=== PATIENT | male | born 1980 ===

== ENCOUNTER 2023-12-09 19:06 | Observation (INO) | payer MEDICAID ==
[~2023-12-09] VITALS: Ht 175.3 cm; Wt 81.7 kg
[2023-12-09] MEDS ORDERED: DiphenhydrAMINE HCl 50 MG/ML 1ML Vial IM ONE (19:40)
[2023-12-09] MEDS ORDERED: Haloperidol Lactate Inj. 5 MG/ML Injection IM ONE (19:40)
[2023-12-09] MEDS ORDERED: LORazepam 2 MG/ML 1ML Injection IM ONE (19:40)
[2023-12-10] MEDS ORDERED: Nicotine Polacrilex 2 MG Gum PO PRN (10:25)
[2023-12-10] MEDS ORDERED: Nicotine 21 MG PATCH TOP SCH (10:25)
[2023-12-10] MEDS ORDERED: Haloperidol Lactate Inj. 5 MG/ML Injection IM ONE (10:25)
[2023-12-10] MEDS ORDERED: OLANZapine ODT 5 MG Tab MM ONE (10:25)
[2023-12-10] MEDS ORDERED: LORazepam 2 MG/ML 1ML Injection IM ONE (10:30)
[2023-12-10 11:44] LABS: BASOPHILS ABSOLUTE AUTO 0.04 K/mm3 (0.00-0.23); BASOPHILS PERCENT AUTO 1 % (0-2); EOSINOPHILS ABSOLUTE AUTO 0.19 K/mm3 (0.00-0.68); EOSINOPHILS PERCENT AUTO 2 % (0-6); Hematocrit 41.9 % (37.0-53.0); Hemoglobin 14.1 g/dL (13.5-17.5); IMMATURE GRAN ABSOLUTE AUTO 0.01 K/mm3 (0.00-0.10); IMMATURE GRAN PERCENT AUTO 0 % (0-1); LYMPHOCYTES ABSOLUTE AUTO 1.53 K/mm3 (0.84-5.20); LYMPHOCYTES PERCENT AUTO 20 % (21-46); MONOCYTES ABSOLUTE AUTO 0.78 K/mm3 (0.16-1.47); MONOCYTES PERCENT AUTO 10 % (4-13); Mean Corpuscular HGB 30.5 pg (26.0-34.0); Mean Corpuscular HGB Conc 33.7 g/dL (31.5-36.5); Mean Corpuscular Volume 91 fL (80-100); NEUTROPHILS ABSOLUTE AUTO 5.24 K/mm3 (1.96-9.15); NEUTROPHILS PERCENT AUTO 67 % (41-73); Platelet Count 222 K/mm3 (150-400); RDW Coefficient Variation 13.5 % (11.7-14.2); RDW Standard Deviation 45.4 fL (35.1-46.3); Red Blood Cell Count 4.63 M/mm3 (4.30-5.90); White Blood Cell Count 7.79 K/mm3 (4.00-11.30)
[2023-12-10] MEDS ORDERED: OLANZapine 10 MG Vial IM PRN (11:55)
[2023-12-10 12:05] LABS: Acetaminophen, Random <2.0 ug/mL (10.0-30.0); Alanine Aminotransfer (ALT/SGP 24 U/L (12-78); Albumin, Blood 3.5 g/dL (3.4-5.0); Alk Phos 96 U/L (50-136); Anion Gap 7 mmol/L (3-11); Aspartate Aminotrans (AST/SGOT 26 U/L (12-37); Bilirubin, Total 1.5 mg/dL (0.1-1.0); Blood Urea Nitrogen 14 mg/dL (8-24); Bun/Creatinine Ratio 16.8 (12.0-20.0); CO2, Blood 30 mmol/L (21-32); Calcium, Blood 8.7 mg/dL (8.5-10.1); Chloride, Blood 107 mmol/L (98-108); Creatinine, Blood 0.84 mg/dL (0.60-1.20); Ethanol (Alcohol), Blood, Med <3 mg/dL; Globulin, Blood 3.5 g/dL (2.2-4.0); Glomerular Filtration Rate 112 (60-); Glucose, Blood 97 mg/dL (70-99); Potassium, Blood 3.8 mmol/L (3.5-5.5); Salicylate <1.7 mg/dL (2.8-20.0); Sodium, Blood 140 mmol/L (136-145)
[2023-12-10 18:25] LABS: Source, Urine Voided
[2023-12-10 18:32] LABS: Appearance, Urine Clear (Clear); Bilirubin, Urine Neg (Neg); Blood, Urine Neg (Neg); Color, Urine Yellow (P-Yellow); Glucose Qualitative, Urine Neg (Neg); Ketones, Urine Neg (Neg); Leukocyte Esterase, Urine Neg (Neg); Nitrite, Urine Neg (Neg); Protein, Urine Neg (Neg); Specific Gravity, Urine 1.015 (1.003-1.022); Urobilinogen, Urine NORM (Normal); pH, Urine 6.5 (5.0-8.0)
[2023-12-10 18:50] LABS: U Amphetamine Screen Not Detected; U Barbituate Screen Not Detected; U Benzodiazapine Screen DETECTED; U Buprenorphine Screen Not Detected; U Cannabinoids Screen DETECTED; U Cocaine Screen Not Detected; U Methadone Screen Not Detected; U Methamphetamine Screen Not Detected; U Opiates Screen Not Detected; U Oxycodone Screen Not Detected; U Phencyclidine Screen Not Detected
[2023-12-10] MEDS ORDERED: OLANZapine 10 MG Tab PO SCH (21:00)
== END 2023-12-11 11:00 | disposition other institution (70) ==
LOC: ER 19:06 → EOR 19:07
PROVIDERS: ADMIT Emergency Medicine
DX: F30.2 Manic episode, severe with psychotic symptoms (principal)
CPT/HCPCS: 80053; 81003; 85025; 86592; 93005; 93010; 96372; 99285-25; A9270; G0378; G0480; J1200; J1630; J2060

== ENCOUNTER 2023-12-11 09:29 | Inpatient (IN) | payer OTHER ==
[~2023-12-11] VITALS: Ht 175.3 cm; Wt 100.0 kg
[2023-12-11] MEDS ORDERED: Acetaminophen 325 MG TABLET PO PRN (10:40)
[2023-12-11] MEDS ORDERED: Aluminum Hydroxide 320MG/5ML 473 ML PO PRN (10:40)
[2023-12-11] MEDS ORDERED: DiphenhydrAMINE HCl 50 MG Cap PO PRN ×3 (10:40)
[2023-12-11] MEDS ORDERED: OLANZapine ODT 10 MG Tab MM PRN (10:45)
[2023-12-11] MEDS ORDERED: Haloperidol 5 MG Tab PO PRN ×3 (10:45→10:50)
[2023-12-11] MEDS ORDERED: Melatonin 3 MG Tab PO PRN (10:45)
[2023-12-11] MEDS ORDERED: OLANZapine 10 MG Vial IM PRN ×2 (10:45)
[2023-12-11] MEDS ORDERED: LORazepam 2 MG Tab PO PRN ×3 (10:45→10:50)
[2023-12-11] MEDS ORDERED: Ibuprofen 600 MG Tab PO PRN (10:50)
[2023-12-11 12:24] VITALS: BP 117/77
--- NOTE | 2023-12-11 17:54 | NUR ---
1739: PATIENT AGITATED PACING STATING, "I AM FRUSTRATED AND DO NOT BELONG HERE". PATIENT REQUESTED TO SPEAK TO HIS MOTHER AND HE STARTED RAISING HIS VOICE, MAKING DEROGATORY REMARKS ABOUT HIS MOTHER, AND HE CONTINUE TO RAISE HIS VOICE, HE STARTED DISRUPTING MILIEU, . HIS MASS SCORE WAS 15 AND I GAVE HIM 2MG OF ATIVAN TO DECREASE HIS AGITATION.
[2023-12-11] MEDS ORDERED: OLANZapine 10 MG Tab PO SCH (21:00)
[2023-12-11 21:02] VITALS: BP 115/71
[2023-12-12 07:45] VITALS: BP 134/91
--- NOTE | 2023-12-12 09:07 | NUR ---
PT UP IN HALLS WHE CAME ON TO SHIFT. WILLING TO INTERVIEW. DENIES SI, STATES HE WNTS HS MON TO RSPECR HIM. STAED THAT HE DROVE UP FROM [place] IN HIS MOM'S CAR BUR INTERCHANGE THE CAR IS HIS OR HERS. NIKUNJ'S INSIGHT WHEN TRYING TO FOCUS ON ONE SUBJECT AT A TIME. PACES UP AND DOWN THE [place] AND JON HAVE ABRUPT OUT BURST OF WORDS AT TOMES. "PEANUT BUTTER AND JELLY TIME." LIKES TO TALK ALL THE TIME.
--- NOTE | 2023-12-12 15:12 | NUR ---
At approximately 12:30pm SW observed and listened as pt contacted Dawit Arora due to pt expressing concerns about being in the [facility] and not having the money to retrieve his car from the [facility] with expenses increasing each day. The pt asked requested SW to be present during the call. Pt was advised by the [facility] that as of 12/12/2023 the total fee is $587 and would increase to $65 per day. Once off the phone call, pt demanding SW to advise staff that he wants to leave the facility today in order to retieve his car because he has concerns that he will not be able to afford the [employer] fee in the event it increases past today. SW advised pt that there is a process for discharge. SW advised director and staff of concerns regarding pt concerns and safety (i.e. pt ability to manage anger effectively).
--- NOTE | 2023-12-12 15:20 | NUR ---
At 1411pm SW received a call from a person that alleged they were the mother of pt. SW remained rn occupational for 7 minutes. Alleged mother advised that she wanted to know how the facility could provide financial assistance for pt vehicle to be taken out of [facility]. SW reviewed with mother, that the facility is not able to pay for the eufemia expenses. SW reviewed with mother alternative resources to utilize for the eufemia expenses.
--- NOTE | 2023-12-12 16:35 | NUR ---
PT EHBITING FUSTRATION OVER CAR TOWED AND EXPENSES. STATED TO 2 STAFF MEMBERS THAT HE DOESN'T BELIEVE THAT THE POLICE DON'T HAVE THE RIGHT TO TAKE THINGS INTO THEIR HANDS OVER A FLAT TIRE. STATING HE FEEELS HE DOESN'T BELONG HERE. "SOCIETY HAS TO MUCH POWER OVER THIS" LET HIM KNOW HTAT IF HE IS BECOMING AGITATED OR OVER WHELMED TO LET ME KNOW AND I CAN GIVE HIM SOMETHING TO HELP HIM CALME OWN AND FEEL BETTER. " I DON'T NEED A PILL AN THAT ISN'T THE ANSWER" WILL CONTINUE TO MONITOR.
--- NOTE | 2023-12-12 17:46 | NUR ---
PT has stated multiple times throughout the day "I do not belong here, I dont want to be here, I dont like that the doctor is younger than me and is making me stay three more days." PT stated he was just making music on his tire when the brim pouncer forced him into the ER then into [facility]. He says he hates being here and feels like he is being held against his will. He says he would rather be here voluntary then Invol.
[2023-12-12] MEDS ORDERED: Miconazole Nitrate 28 GM CREAM..G. TOP PRN (17:55)
[2023-12-12 20:23] VITALS: BP 114/71
--- NOTE | 2023-12-12 23:08 | NUR ---
PT HAS SAID SEVERAL TIMES THAT HE IS READY TO LEAVE AND WANTS ME TO TELL THE DR THAT HE WANTS TO LEAVE, BUT WANTS TO CONTINUE HIS "VACATION".
--- NOTE | 2023-12-13 02:38 | NUR ---
PT UP A FEW MINUTES AGO TO GET A DRINK OF WATER. PT IS BACK TO BED AT THIS TIME. WILL CONTINUE TO MONITOR AND PROVIDE CARE.
--- NOTE | 2023-12-13 04:10 | NUR ---
SHIFT SUMMARY PT WAS UP IN [place] AND ON PHONE WITH HIS MOTHER JUST AFTER SHIFT CHANGE AND BECAME AGITATED. CHARGE NURSE AND THIS RN APPROACHED HIM AND HE HUNG UP WITH HIS MOM AND CALMED DOWN. HE WAS EASILY REDIRECTABLE. DENIES ANY SI, HI OR A/V HALLUCINATIONS. MICONAZOLE GIVEN FOR TOES ON R FOOT. HE HAS BEEN SLEEPING QUIETLY SINCE HE WENT TO BED. WILL CONT TO MONITOR T/O REST OF SHIFT AND REPORT CHANGES TO MD.
--- NOTE | 2023-12-13 14:29 | NUR ---
On 12/13/2023 from 1403 to 1419 SW met with pt due to pt expressing concerns of discharge (i.e. Return to [facility]). Pt discussed with SW of biological mother not wanting him in her home. SW reviewed with pt healthy communication and self-advocacy tools to utilize when discussing concerns with support system. Pt expressed towards the end of the conversation, that he would like to return to [facility] and have resources of shelters of different counties in [facility]. SW provided pt of [facility] skilled nursing resources (i.e. [place], [place], [facility] and [facility] and [place]).
--- NOTE | 2023-12-13 18:32 | NUR ---
XI OVER-ALL HAD A GOOD DAY. HE WAS A SLIGHTLY AGITATED THIS MORNING D/T WANTING TO GO HOME. DR. MONDRAGON SPOKE WITH HIM AND DECIDED HE WOULD LIFT HIS HOLD AND DC TOMORROW. PT COOPERATIVE AFTER THAT. SW HAS TALKED TO HIS MOM WHO DOES NOT WANT HIM BACK HOME. PREMPTIVE PLAN IS FOR PT TO DC TOMORROW AND TAKE A [employer] HOME.
--- NOTE | 2023-12-14 04:09 | NUR ---
patient very pleasant to work with before bed last night. he has been very in control of his emotions. He did however, refuse his vital signs and physical assessment and told this RN it was not necessary. HS meds taken without difficulty. No calls placed to his mother last evening. Very excited about possible discharge today
--- NOTE | 2023-12-14 12:21 | NUR ---
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 MIKE spoke with Pedro of ext [phone] at approximately 1145 to 1152 in order for Pedro to provide assistance in purchase of [employer] ticket. Pedro advised he will contact MIKE once the ticket has been purchased.
[2023-12-14] MEDS ORDERED: OLAN10 PO (13:43)
[2023-12-14] MEDS ORDERED: ANTIFUNGAL EXTR92 GM TOP (13:44)
--- NOTE | 2023-12-14 14:57 | NUR ---
MIKE received [employer] ticket from [employer]. SW placed [employer] ticket in pt file. SW reviewed with team for a taxi service to be contacted 2 hours before [employer] depature (i.e. 2355pm). Pt advised SW that once they arrive to [facility], they plan to reconnect with biological mother for housing support.
--- NOTE | 2023-12-14 15:56 | NUR ---
PT DID NOT ENGAGE IN GROUP SESSIONS TODAY, HE DID PLAY THE SWITCH AND ALSO PLAYED A PICTIONARY GAME WITH OTHER PATIENTS AND STAFF, HAS BEEN EATING WELL AND PACING THIS AFTERNOON, SIMPLY STATES HE IS "GOOD," WHEN ASKED HOW HE IS DOING.
--- NOTE | 2023-12-14 19:38 | NUR ---
Pt calm, cooperative, having conversation with family member. Using coping skills and lower tone of voice, guarding against getting riled up with anxiety. Pt denies SI, HI, A/V Hallucinations, No issues at this time.
--- NOTE | 2023-12-14 22:08 | NUR ---
Pt calm, cooperative, medication compliant. Medications well tolerated. Pt seen on unit social, eating snack wiht peers, watching TV. Pt able to teach back medication action, indication, side effects. Pt denies SI, HI, A/V Hallucinations, no issues at this time. Pt able to identify anxiety and coping skills, verbalizes plans for future with realistic actions and goals.
--- NOTE | 2023-12-14 22:27 | NUR ---
Pt calm, cooperative, medication compliant, medications well tolerated. Pt denies SI, HI, A/V Halucinations no issues at this time.
--- NOTE | 2023-12-14 22:29 | NUR ---
Pt calm, cooperative, optimistic, medications well tolerated and compliant. Pt denies SI, HI, A/V Hallucination noo issues at this time.
--- NOTE | 2023-12-14 22:33 | NUR ---
Pt calm, cooperative, medication compliant, medication well tolerated. [id number] Pt denies SI, HI, A/V Hallucinations at this time.
--- NOTE | 2023-12-14 23:00 | NUR ---
Pt denies SI, HI, A/V Hallucination, no issues at this time. PT D/C [id number]
--- NOTE | 2023-12-14 23:16 | NUR ---
Pt calm, cooperative, Med compliant, Pt social, positive, deffinite plans for future. Pt denies SI, HI, A/V Hallucinations no issues at this time. Discharged 2234 this shift [id number].
== END 2023-12-14 22:15 | disposition home or self-care (01) | DRG 885 ==
LOC: BHU 09:29
PROVIDERS: ADMIT Student in an Organized Health Care Education/Training Program
DX: F31.75 Bipolar disorder, in partial remission, most recent episode depressed (principal); F17.200 Nicotine dependence, unspecified, uncomplicated
CPT/HCPCS: A9270